=== PATIENT | male | born 1945 | race Asian ===

== ENCOUNTER 2023-07-18 22:52 | Inpatient (IN) | payer OTHER, MEDICAID ==
[~2023-07-18] VITALS: Ht 160 cm; Wt 70.0 kg
[2023-07-19] VITALS (25 sets, daily range): BP systolic 91–144; BP diastolic 38–99; PULSE 80–121; RESP 11–22; TEMP 98–99.7; O2SAT 97–100
[2023-07-19 00:24] LABS: Hemoglobin 7.1 g/dL (13.5-17.5)
[2023-07-19 00:25] LABS: Hematocrit 23.7 % (41.0-53.0); Mean Corpuscular Hemoglobin 19.2 pg (28.0-32.0); Mean Corpuscular Hgb Conc. 29.8 g/dL (32.0-36.0); Mean Corpuscular Volume 64.4 fL (80.0-100.0); Red Blood Cells 3.68 10^6/uL (4.5-5.90); White Blood Cell 17.8 10^3/uL (4.4-10.8)
[2023-07-19 00:31] LABS: Basophils % (manual) 0 (0.0-2.0); Blast Cells 0; Metamyelocytes % 0; Myelocytes % 0; Promyelocytes % 0
[2023-07-19] MEDS: SODIUM CHLORIDE 0.9% 500 ML IV ONE ×2 (00:33→13:15)
[2023-07-19 00:39] LABS: INR 1.28 (0.9-1.15); Partial Thromboplastin Time 37.2 SEC (24.5-34.5); Prothrombin Time 13.2 sec (9.3-11.8)
[2023-07-19 00:42] LABS: Alanine Aminotransferase 27 U/L (7-40); Albumin 3.4 g/dL (3.2-4.8); Alkaline Phosphatase 110 U/L (46-116); Anion Gap 3 (5-15); Aspartate Aminotransferase 15 U/L (13-40); Blood Urea Nitrogen 44 mg/dL (9-23); Calcium 8.7 mg/dL (8.7-10.4); Carbon Dioxide 27 mmol/L (20-30); Chloride 100 mmol/L (98-107); Glucose 131 mg/dL (74-106); Potassium 4.5 mmol/L (3.5-5.1); Sodium 130 mmol/L (136-145); Total Protein 6.1 g/dL (5.7-8.2)
[2023-07-19 00:50] LABS: Band Neutrophils % (manual) 3; Eosinophils % (manual) 1 (0-7); Large Platelets FEW; Lymphocytes % (manual) 8 (10.0-50.0); Monocytes % (manual) 29 (0-12); Platelet Estimate Decreased; Reactive Lymphocytes 1
[2023-07-19 00:51] LABS: Anisocytosis Moderate; Hypochromia Marked; Ovalocytes FEW; Target Cell MODERATE
[2023-07-19] MEDS ORDERED: DEXTROSE (50%) 50ML SYRG IV PRN (02:45)
[2023-07-19] MEDS ORDERED: MORPHINE SULFATE INJ 2 MG/ml SYRG IV PRN (02:45)
[2023-07-19] MEDS ORDERED: NITROGLYCERIN 0.4 MG SL TAB SL PRN (02:45)
[2023-07-19] MEDS ORDERED: ONDANSETRON HCL 4 MG/2 ML VIAL IV PRN (02:45)
[2023-07-19] MEDS: ERYTHROMY OPTH OINT 5mg/gm 1gm or 3.5gm tube ONE (02:59)
[2023-07-19] MEDS ORDERED: ERYTHROMY OPTH OINT 5mg/gm 1gm or 3.5gm tube OP ONE (03:00)
[2023-07-19] MEDS: PANTOPRAZOLE 40mg/50ML NS AE 50 ML IV SCH (04:13)
[2023-07-19] MEDS: InsuLIN REG 1unit/0.01ml Soln (100units/ml) SC SCH (06:00)
[2023-07-19] MEDS: ACCU-CHEK COMFORT CURVE STRIP VI SCH (06:25)
[2023-07-19] MEDS: cefTRIAXone 1GM/50ML D5W 50 ML IV SCH (09:15)
[2023-07-19] MEDS: NOREPINEPHRINE 8 MG/250ML KIT 250 ML IV ONE (09:29)
[2023-07-19] MEDS: NOREPINEPHRINE 8 MG/250ML KIT 250 ML IV SCH (09:30)
[2023-07-19 10:40] LABS: Urine Bacteria None Seen /hpf (None Seen)
[2023-07-19 11:03] LABS: Urine Blood Negative /uL (Negative); Urine Clarity Clear (Clear); Urine Color Light-Yellow (Yellow); Urine Protein, UAD Negative (Negative); Urine Specific Gravity 1.014 (1.001-1.035); Urine Urobilinogen Normal (Negative); Urine WBC <1 /hpf (0 - 3); Urine pH 5.5 (5.0-9.0)
[2023-07-19] MEDS: SODIUM CHLORIDE 0.9% 1,000 ML IV SCH (13:15)
[2023-07-19] MEDS: PIPERACILLIN-TAZOB 3.375GM 100 ML IV ONE (13:15)
[2023-07-19 13:31] LABS: Base Excess -4.5 mmol/L (-2.0-2.0)
[2023-07-19 13:55] LABS: Mean Corpuscular Hemoglobin 20.6 pg (28.0-32.0)
[2023-07-19 13:57] LABS: Hematocrit 9.9 % (41.0-53.0); Mean Corpuscular Volume 70.9 fL (80.0-100.0); Red Blood Cells 1.39 10^6/uL (4.5-5.90); White Blood Cell 19.9 10^3/uL (4.4-10.8)
[2023-07-19 14:03] LABS: Potassium 4.1 mmol/L (3.5-5.1); Sodium 138 mmol/L (136-145)
[2023-07-19 14:04] LABS: Anion Gap 6 (5-15)
[2023-07-19 14:09] LABS: Glucose 195 mg/dL (74-106)
[2023-07-19 14:10] LABS: BUN/Creatinine Ratio 53.6 (10.0-20.0); Blood Urea Nitrogen 52 mg/dL (9-23)
[2023-07-19 14:12] LABS: Red Cell Distribution Width 26.8 % (11.8-14.3)
[2023-07-19 14:13] LABS: Hemoglobin 2.9 g/dL (13.5-17.5)
[2023-07-19 14:14] LABS: Basophils % (manual) 0 (0.0-2.0); Promyelocytes % 0; Reactive Lymphocytes 0
[2023-07-19] MEDS: PIPERACILLIN-TAZOB 3.375GM 100 ML IV SCH (14:17)
[2023-07-19] MEDS: LIDOCAINE 1% (LOCAL ANESTH.) PF 5ml SDV ID ONE (14:20)
[2023-07-19 14:46] LABS: Band Neutrophils % (manual) 6; Blast Cells 4; Eosinophils % (manual) 2 (0-7); Lymphocytes % (manual) 5 (10.0-50.0); Metamyelocytes % 6; Monocytes % (manual) 15 (0-12); Myelocytes % 2; Smudge Cells 1 /100 WBC
[2023-07-19 14:47] LABS: Platelet Estimate Decreased
[2023-07-19 14:48] LABS: Anisocytosis Moderate; Hypochromia Marked; Ovalocytes MODERATE
[2023-07-19 14:51] LABS: Carbon Dioxide 16 mmol/L (20-30); Chloride 116 mmol/L (98-107)
[2023-07-19 14:52] LABS: Calcium 5.3 mg/dL (8.7-10.4)
[2023-07-19] MEDS: LACTATED RINGER'S 1,000 ML IV SCH (15:45)
[2023-07-19] MEDS: CALCIUM GLUC 1,000mg/50ml-NS 50 ML IV ONE (15:45)
[2023-07-19 20:35] LABS: White Blood Cell 26.8 10^3/uL (4.4-10.8)
[2023-07-19 20:37] LABS: Hematocrit 19.8 % (41.0-53.0); Mean Corpuscular Hgb Conc. 30.8 g/dL (32.0-36.0); Mean Corpuscular Volume 71.5 fL (80.0-100.0); Red Blood Cells 2.77 10^6/uL (4.5-5.90)
[2023-07-19 20:38] LABS: Red Cell Distribution Width 28.7 % (11.8-14.3)
[2023-07-19 20:41] LABS: Hemoglobin 6.1 g/dL (13.5-17.5)
[2023-07-19 20:43] LABS: Basophils % (manual) 0 (0.0-2.0); Blast Cells 0; Myelocytes % 0; Promyelocytes % 0; Reactive Lymphocytes 0
[2023-07-19] MEDS: SODIUM CHLOR 0.9% PF (SALINE LOCK) 10ML VIAL/SYR IV SCH (22:22)
[2023-07-19 22:30] LABS: Band Neutrophils % (manual) 8; Eosinophils % (manual) 2 (0-7); Lymphocytes % (manual) 5 (10.0-50.0); Monocytes % (manual) 23 (0-12)
[2023-07-19 22:31] LABS: Anisocytosis Moderate; Metamyelocytes % 2; Target Cell FEW; Tear Drop Cells FEW
[2023-07-19 22:34] LABS: Hypochromia Marked
[2023-07-19 22:49] LABS: Platelet Estimate Decreased
[2023-07-20] VITALS (27 sets, daily range): BP systolic 92–137; BP diastolic 33–67; PULSE 83–94; RESP 13–26; TEMP 97.3–98.7; O2SAT 88–100
[2023-07-20] MEDS: LORazepam 2MG/ML-1ML VIAL IV ONE (01:20)
[2023-07-20 01:33] LABS: Hematocrit 23.4 % (41.0-53.0); Hemoglobin 7.3 g/dL (13.5-17.5)
[2023-07-20 06:24] LABS: Hematocrit 22.5 % (41.0-53.0)
[2023-07-20 06:27] LABS: Mean Corpuscular Hemoglobin 23.5 pg (28.0-32.0); Mean Corpuscular Volume 75.8 fL (80.0-100.0); Red Blood Cells 2.96 10^6/uL (4.5-5.90); White Blood Cell 20.4 10^3/uL (4.4-10.8)
[2023-07-20 06:34] LABS: Red Cell Distribution Width 28.1 % (11.8-14.3)
[2023-07-20 06:36] LABS: Basophils % (manual) 0 (0.0-2.0); Blast Cells 0; Eosinophils % (manual) 0 (0-7); Promyelocytes % 0; Reactive Lymphocytes 0
[2023-07-20 06:39] LABS: Alanine Aminotransferase 15 U/L (7-40); Alkaline Phosphatase 73 U/L (46-116); Anion Gap 7 (5-15); BUN/Creatinine Ratio 37.2 (10.0-20.0); Blood Urea Nitrogen 58 mg/dL (9-23); Calcium 8.2 mg/dL (8.5-10.1); Carbon Dioxide 24 mmol/L (20-30); Chloride 106 mmol/L (98-107); Glucose 135 mg/dL (74-106); Potassium 4.4 mmol/L (3.5-5.1); Sodium 137 mmol/L (136-145)
[2023-07-20 06:40] LABS: Aspartate Aminotransferase 17 U/L (13-40); Bilirubin, Total 0.6 mg/dL (0.2-1.0); Total Protein 5.3 g/dL (5.7-8.2)
[2023-07-20 08:30] LABS: Band Neutrophils % (manual) 6; Lymphocytes % (manual) 25 (10.0-50.0); Metamyelocytes % 1; Monocytes % (manual) 14 (0-12); Myelocytes % 1; Platelet Estimate Decreased; Target Cell FEW
[2023-07-20 08:31] LABS: Anisocytosis Moderate; Hypochromia Moderate; Ovalocytes FEW
[2023-07-20 11:11] LABS: Red Blood Cells 2.93 10^6/uL (4.5-5.90)
[2023-07-20 11:13] LABS: Hematocrit 21.5 % (41.0-53.0); Mean Corpuscular Hgb Conc. 31.3 g/dL (32.0-36.0); Mean Corpuscular Volume 73.7 fL (80.0-100.0); White Blood Cell 19.3 10^3/uL (4.4-10.8)
[2023-07-20 11:31] LABS: Red Cell Distribution Width 28.5 % (11.8-14.3)
[2023-07-20 11:42] LABS: Hemoglobin 6.7 g/dL (13.5-17.5)
[2023-07-20 11:43] LABS: Basophils % (manual) 0 (0.0-2.0); Blast Cells 0; Metamyelocytes % 0; Myelocytes % 0; Promyelocytes % 0; Reactive Lymphocytes 0
[2023-07-20 11:56] LABS: Anisocytosis Moderate; Band Neutrophils % (manual) 10; Eosinophils % (manual) 4 (0-7); Hypochromia Moderate; Lymphocytes % (manual) 13 (10.0-50.0); Monocytes % (manual) 6 (0-12)
[2023-07-20 11:57] LABS: Ovalocytes FEW; Platelet Estimate Decreased; Target Cell FEW; Tear Drop Cells FEW
[2023-07-20] MEDS: IRON SUCROSE COMPLEX 100 ML IV SCH (12:00)
[2023-07-20] MEDS ORDERED: EPINEPHrine HCL 1 MG/10 ML SYRG ONE (13:09)
[2023-07-20] MEDS ORDERED: LIDOCAINE 2% (LOCAL ANESTH.) PF 5ml SDV ONE (13:56)
[2023-07-20] MEDS ORDERED: PROPOFOL 10 MG/ML 20 ML IV ONE (13:56)
[2023-07-20] MEDS ORDERED: ONDANSETRON HCL 4 MG/2 ML VIAL ONE (14:17)
[2023-07-20] MEDS ORDERED: KETAMINE 50mg/ML 1ml syringe ONE (14:17)
[2023-07-20] MEDS: ONDANSETRON HCL 4 MG/2 ML VIAL IV ONE (14:30)
[2023-07-20] MEDS: SUCRALFATE 1 GM/10 ML ORAL SUSP PO SCH (18:10)
[2023-07-20 19:40] LABS: Hematocrit 20.2 % (41.0-53.0)
[2023-07-20 19:49] LABS: Hemoglobin 6.3 g/dL (13.5-17.5)
[2023-07-20] MEDS: PANTOPRAZOLE 40 MG/10 ML VIAL INJ IV SCH (21:57)
[2023-07-21] VITALS (28 sets, daily range): BP systolic 101–135; BP diastolic 31–63; PULSE 69–99; RESP 15–23; TEMP 97.5–98.4; O2SAT 80–100
[2023-07-21 09:56] LABS: Hematocrit 28.2 % (41.0-53.0); Red Blood Cells 3.63 10^6/uL (4.5-5.90); White Blood Cell 16.4 10^3/uL (4.4-10.8)
[2023-07-21 09:57] LABS: Hemoglobin 9.2 g/dL (13.5-17.5); Mean Corpuscular Hemoglobin 25.2 pg (28.0-32.0); Mean Corpuscular Hgb Conc. 32.5 g/dL (32.0-36.0); Mean Corpuscular Volume 77.7 fL (80.0-100.0)
[2023-07-21 10:04] LABS: Red Cell Distribution Width 24.6 % (11.8-14.3)
[2023-07-21 10:05] LABS: Band Neutrophils % (manual) 0; Basophils % (manual) 0 (0.0-2.0); Blast Cells 0; Myelocytes % 0; Promyelocytes % 0; Reactive Lymphocytes 0
[2023-07-21 10:20] LABS: Calcium 8.1 mg/dL (8.5-10.1); Chloride 106 mmol/L (98-107); Potassium 4.4 mmol/L (3.5-5.1); Sodium 137 mmol/L (136-145)
[2023-07-21 10:21] LABS: Anion Gap 6 (5-15); Carbon Dioxide 25 mmol/L (20-30)
[2023-07-21 10:26] LABS: Glucose 138 mg/dL (74-106)
[2023-07-21 10:49] LABS: Blood Urea Nitrogen 33 mg/dL (9-23)
[2023-07-21] MEDS: LACTATED RINGER'S 1,000 ML IV SCH (11:20)
[2023-07-21 12:45] LABS: Anisocytosis Moderate; Eosinophils % (manual) 3 (0-7); Lymphocytes % (manual) 10 (10.0-50.0); Metamyelocytes % 3; Monocytes % (manual) 16 (0-12); Ovalocytes MODERATE; Platelet Estimate Decreased
[2023-07-22] VITALS (29 sets, daily range): BP systolic 52–133; BP diastolic 0–74; PULSE 63–90; RESP 12–22; TEMP 97.3–98.9; O2SAT 93–100
[2023-07-22] MEDS: ALBUMIN 25% 100 ML IV ONE (01:33)
[2023-07-22] MEDS: OCTREOTIDE ACETATE 500 MCG/ML VL ONE (01:45)
[2023-07-22] MEDS: OCTREOTIDE ACETATE 500 MCG in SODIUM CHL 0.9% 99 ML IV SCH (01:45)
[2023-07-22] MEDS: ALBUMIN 25% 100 ML IV SCH (02:00)
[2023-07-22 02:05] LABS: Hematocrit 16.5 % (41.0-53.0)
[2023-07-22 02:46] LABS: Hemoglobin 5.1 g/dL (13.5-17.5)
[2023-07-22 13:29] LABS: Mean Corpuscular Hemoglobin 24.3 pg (28.0-32.0); Mean Corpuscular Hgb Conc. 31.6 g/dL (32.0-36.0); Mean Corpuscular Volume 76.9 fL (80.0-100.0); Red Blood Cells 2.59 10^6/uL (4.5-5.90); White Blood Cell 13.5 10^3/uL (4.4-10.8)
[2023-07-22 13:32] LABS: Red Cell Distribution Width 22.3 % (11.8-14.3)
[2023-07-22 13:35] LABS: Hemoglobin 6.3 g/dL (13.5-17.5)
[2023-07-22 13:36] LABS: Basophils % (manual) 0 (0.0-2.0); Blast Cells 0; Chloride 110 mmol/L (98-107); Myelocytes % 0; Potassium 4.7 mmol/L (3.5-5.1); Promyelocytes % 0; Reactive Lymphocytes 0; Sodium 140 mmol/L (136-145)
[2023-07-22 13:37] LABS: Anion Gap 5 (5-15); Calcium 7.5 mg/dL (8.5-10.1); Carbon Dioxide 25 mmol/L (20-30)
[2023-07-22 13:42] LABS: BUN/Creatinine Ratio 13.5 (10.0-20.0); Blood Urea Nitrogen 19 mg/dL (9-23); Glucose 120 mg/dL (74-106)
[2023-07-22 13:43] LABS: % Iron Saturation 122.2 % (20-55)
[2023-07-22 14:33] LABS: Band Neutrophils % (manual) 2; Eosinophils % (manual) 4 (0-7); Lymphocytes % (manual) 6 (10.0-50.0); Metamyelocytes % 1; Monocytes % (manual) 19 (0-12)
[2023-07-22 14:34] LABS: Anisocytosis Slight; Hypochromia Moderate; Target Cell FEW
[2023-07-22 14:36] LABS: Platelet Estimate Decreased; Tear Drop Cells FEW
[2023-07-22 21:29] LABS: Hematocrit 26.4 % (41.0-53.0); Hemoglobin 8.4 g/dL (13.5-17.5)
[2023-07-23] VITALS (30 sets, daily range): BP systolic 87–128; BP diastolic 32–55; PULSE 70–92; RESP 12–25; TEMP 97.9–98.9; O2SAT 91–97
[2023-07-23 05:50] LABS: Chloride 109 mmol/L (98-107); Potassium 4.4 mmol/L (3.5-5.1); Sodium 141 mmol/L (136-145)
[2023-07-23 05:51] LABS: Anion Gap 9 (5-15); Calcium 8.1 mg/dL (8.7-10.4); Carbon Dioxide 23 mmol/L (20-30)
[2023-07-23 05:56] LABS: BUN/Creatinine Ratio 8.6 (10.0-20.0); Blood Urea Nitrogen 13 mg/dL (9-23); Glucose 117 mg/dL (74-106)
[2023-07-23 06:01] LABS: White Blood Cell 24.9 10^3/uL (4.4-10.8)
[2023-07-23 06:03] LABS: Basophils # (auto) 0.1 10 ^3/uL (0-0.2); Basophils % (auto) 0.4 % (0.0-2.0); Eosinophils # (auto) 1.2 10 ^3/uL (0-0.8); Eosinophils % (auto) 4.7 % (0.0-7.0); Hematocrit 28.8 % (41.0-53.0); Lymphocytes % (auto) 4.1 % (10.0-50.0); Mean Corpuscular Hemoglobin 25.2 pg (28.0-32.0); Mean Corpuscular Hgb Conc. 31.3 g/dL (32.0-36.0); Mean Corpuscular Volume 80.5 fL (80.0-100.0); Monocytes # (auto) 3.9 10 ^3/uL (0-1.3); Monocytes % (auto) 15.7 % (0.0-12.0); Neutrophils # (auto) 18.7 10 ^3/uL (1.6-8.6); Neutrophils % (auto) 75.1 % (37.0-80.0); Nucleated Red Blood Cells % 0.1 %; Red Blood Cells 3.58 10^6/uL (4.5-5.90)
[2023-07-23 06:14] LABS: Red Cell Distribution Width 22.7 % (11.8-14.3)
[2023-07-23 22:33] LABS: Hemoglobin 7.7 g/dL (13.5-17.5)
[2023-07-23 22:35] LABS: Hematocrit 24.8 % (41.0-53.0)
[2023-07-24] VITALS (101 sets, daily range): BP systolic 72–138; BP diastolic 35–67; PULSE 64–111; RESP 10–27; TEMP 96.7–98.2; O2SAT 91–100
[2023-07-24] MEDS: NOREPINEPHRINE 8 MG/250ML KIT 250 ML IV SCH (02:18)
[2023-07-24 04:04] LABS: Anion Gap 4 (5-15); Carbon Dioxide 25 mmol/L (20-30); Chloride 109 mmol/L (98-107); Sodium 138 mmol/L (136-145)
[2023-07-24 04:05] LABS: Calcium 7.7 mg/dL (8.7-10.4)
[2023-07-24 04:10] LABS: BUN/Creatinine Ratio 7.5 (10.0-20.0); Blood Urea Nitrogen 14 mg/dL (9-23); Glucose 165 mg/dL (74-106)
[2023-07-24 04:54] LABS: Potassium 5.7 mmol/L (3.5-5.1)
[2023-07-24 05:03] LABS: Hematocrit 26.3 % (41.0-53.0); Hemoglobin 7.8 g/dL (13.5-17.5); Mean Corpuscular Hemoglobin 24.7 pg (28.0-32.0); Mean Corpuscular Hgb Conc. 29.8 g/dL (32.0-36.0); Mean Corpuscular Volume 82.8 fL (80.0-100.0); Red Blood Cells 3.17 10^6/uL (4.5-5.90)
[2023-07-24 05:18] LABS: Red Cell Distribution Width 22.2 % (11.8-14.3)
[2023-07-24 05:20] LABS: White Blood Cell 82.1 10^3/uL (4.4-10.8)
[2023-07-24 05:21] LABS: Basophils % (manual) 0 (0.0-2.0); Blast Cells 0; Metamyelocytes % 0; Promyelocytes % 0; Reactive Lymphocytes 0
[2023-07-24 08:16] LABS: Band Neutrophils % (manual) 6; Eosinophils % (manual) 14 (0-7); Lymphocytes % (manual) 11 (10.0-50.0); Monocytes % (manual) 20 (0-12); Myelocytes % 1
[2023-07-24 08:17] LABS: Large Platelets FEW
[2023-07-24 08:18] LABS: Platelet Estimate Adequa
[2023-07-24] MEDS: OCTREOTIDE ACETATE 500 MCG in SODIUM CHL 0.9% 99 ML IV SCH (08:30)
[2023-07-24] MEDS: PANTOPRAZOLE 40mg/50ML NS AE 50 ML IV SCH (08:30)
[2023-07-24] MEDS: GOLYTELY 4L KIT PO ONE (08:30)
[2023-07-24 11:03] LABS: Hematocrit 23.4 % (41.0-53.0); Hemoglobin 7.2 g/dL (13.5-17.5); Mean Corpuscular Hemoglobin 25.7 pg (28.0-32.0); Mean Corpuscular Hgb Conc. 30.8 g/dL (32.0-36.0); Mean Corpuscular Volume 83.5 fL (80.0-100.0); Red Cell Distribution Width 19.7 % (11.8-14.3)
[2023-07-24 11:05] LABS: White Blood Cell 77.2 10^3/uL (4.4-10.8)
[2023-07-24 11:06] LABS: Basophils % (manual) 0 (0.0-2.0); Blast Cells 0; Chloride 110 mmol/L (98-107); Metamyelocytes % 0; Promyelocytes % 0; Reactive Lymphocytes 0; Sodium 140 mmol/L (136-145)
[2023-07-24 11:07] LABS: Anion Gap 5 (5-15); Calcium 7.3 mg/dL (8.5-10.1); Carbon Dioxide 25 mmol/L (20-30)
[2023-07-24 11:12] LABS: BUN/Creatinine Ratio 10.8 (10.0-20.0); Blood Urea Nitrogen 21 mg/dL (9-23); Glucose 149 mg/dL (74-106)
[2023-07-24 11:15] LABS: Potassium 5.6 mmol/L (3.5-5.1)
[2023-07-24 11:18] LABS: INR 1.76 (0.9-1.15); Partial Thromboplastin Time 38.7 SEC (24.5-34.5); Prothrombin Time 17.9 sec (9.3-11.8)
[2023-07-24] MEDS: NOREPINEPHRINE 8 MG/250ML KIT 250 ML IV ONE (11:25)
[2023-07-24 11:39] LABS: Band Neutrophils % (manual) 8; Eosinophils % (manual) 6 (0-7); Lymphocytes % (manual) 13 (10.0-50.0); Monocytes % (manual) 14 (0-12); Myelocytes % 1
[2023-07-24 11:40] LABS: Platelet Estimate Adequate
[2023-07-24] MEDS ORDERED: KETAMINE 50mg/ML 1ml syringe ONE ×2 (11:55→12:00)
[2023-07-24] MEDS ORDERED: MIDAZOLAM HCL 2MG/2ML 2ml VIAL (1mg/ml) ONE (11:55)
[2023-07-24] MEDS ORDERED: fentaNYL CITRATE 100 MCG/2 ML VL ONE (11:55)
[2023-07-24] MEDS: ONDANSETRON HCL 4 MG/2 ML VIAL IV ONE (12:00)
[2023-07-24] MEDS ORDERED: EPINEPHrine HCL 1 MG/10 ML SYRG ONE (12:57)
[2023-07-24] MEDS: EPINEPHrine HCL 1 MG/10 ML SYRG ONE ×2 (13:43)
[2023-07-24] MEDS ORDERED: ONDANSETRON HCL 4 MG/2 ML VIAL ONE (13:49)
[2023-07-24 16:54] LABS: Urine Amorphous Crystal FEW /hpf (None Seen); Urine Bacteria FEW /hpf (None Seen); Urine Blood 1+ /uL (Negative); Urine Clarity Ex.Turbid (Clear); Urine Color Yellow (Yellow); Urine Protein, UAD 1+ (Negative); Urine Specific Gravity 1.027 (1.001-1.035); Urine Urobilinogen Normal (Negative); Urine WBC 9 /hpf (0 - 3); Urine pH 5.5 (5.0-9.0)
[2023-07-24 17:00] LABS: Creatinine, Urine 130.44 mg/dL (30.0-125.0)
[2023-07-24] MEDS: SODIUM CHLORIDE 0.9% 1,000 ML IV SCH (17:13)
[2023-07-24] MEDS: CEFEPIME 1GM/ 50ML 50 ML IV SCH (21:45)
[2023-07-24 22:15] LABS: Hematocrit 20.2 % (41.0-53.0); Mean Corpuscular Hemoglobin 25.7 pg (28.0-32.0); Mean Corpuscular Hgb Conc. 29.9 g/dL (32.0-36.0); Mean Corpuscular Volume 85.9 fL (80.0-100.0); Red Blood Cells 2.35 10^6/uL (4.5-5.90); Red Cell Distribution Width 17.6 % (11.8-14.3)
[2023-07-24 22:24] LABS: Basophils % (manual) 0 (0.0-2.0); Blast Cells 0; Promyelocytes % 0; Reactive Lymphocytes 0; White Blood Cell 58.1 10^3/uL (4.4-10.8)
[2023-07-24 23:29] LABS: Band Neutrophils % (manual) 17; Eosinophils % (manual) 2 (0-7); Lymphocytes % (manual) 4 (10.0-50.0); Metamyelocytes % 3; Monocytes % (manual) 14 (0-12)
[2023-07-24 23:30] LABS: Myelocytes % 2
[2023-07-24 23:31] LABS: Anisocytosis Slight; Large Platelets FEW; Platelet Estimate Adequate
[2023-07-25] VITALS (110 sets, daily range): BP systolic 65–157; BP diastolic 16–118; PULSE 81–134; RESP 10–33; TEMP 96.1–98.6; O2SAT 91–100
[2023-07-25] MEDS: VASOPRESSIN 20 UNIT/ML ONE (02:24)
[2023-07-25 03:49] LABS: Albumin 1.9 g/dL (3.2-4.8); Alkaline Phosphatase 48 U/L (46-116); Anion Gap 4 (5-15); Aspartate Aminotransferase 12 U/L (13-40); BUN/Creatinine Ratio 8.3 (10.0-20.0); Bilirubin, Total 0.5 mg/dL (0.2-1.0); Blood Urea Nitrogen 17 mg/dL (9-23); Calcium 6.7 mg/dL (8.7-10.4); Carbon Dioxide 22 mmol/L (20-30); Chloride 114 mmol/L (98-107); Glucose 175 mg/dL (74-106); Potassium 5.1 mmol/L (3.5-5.1); Sodium 140 mmol/L (136-145); Total Protein 3.1 g/dL (5.7-8.2); Uric Acid 7.2 mg/dL (3.7-9.2)
[2023-07-25 03:51] LABS: Hematocrit 19.5 % (41.0-53.0); Mean Corpuscular Hemoglobin 26.1 pg (28.0-32.0); Mean Corpuscular Volume 84.1 fL (80.0-100.0); Red Blood Cells 2.32 10^6/uL (4.5-5.90); Red Cell Distribution Width 15.9 % (11.8-14.3)
[2023-07-25 03:53] LABS: Hemoglobin 6.1 g/dL (13.5-17.5); White Blood Cell 69.9 10^3/uL (4.4-10.8)
[2023-07-25 03:54] LABS: Basophils % (manual) 0 (0.0-2.0); Promyelocytes % 0; Reactive Lymphocytes 0
[2023-07-25 04:05] LABS: Alanine Aminotransferase < 9 U/L (7-40)
[2023-07-25 04:27] LABS: Bilirubin, Direct 0.3 mg/dL (<0.3)
[2023-07-25] MEDS: PHENYLEPHRINE IV 250 ML IV SCH (05:00)
[2023-07-25 05:17] LABS: Band Neutrophils % (manual) 30; Blast Cells 6; Eosinophils % (manual) 7 (0-7); Lymphocytes % (manual) 2 (10.0-50.0); Metamyelocytes % 8; Monocytes % (manual) 10 (0-12); Myelocytes % 6; Platelet Estimate Adequate; Smudge Cells 3 /100 WBC
[2023-07-25 14:34] LABS: Basophils # (auto) 0.8 10 ^3/uL (0-0.2); Eosinophils # (auto) 1.5 10 ^3/uL (0-0.8); Eosinophils % (auto) 1.8 % (0.0-7.0); Hematocrit 19.7 % (41.0-53.0); Lymphocytes # (auto) 3.5 10 ^3/uL (0.4-5.4); Lymphocytes % (auto) 4.2 % (10.0-50.0); Mean Corpuscular Hemoglobin 26.7 pg (28.0-32.0); Mean Corpuscular Hgb Conc. 30.4 g/dL (32.0-36.0); Mean Corpuscular Volume 87.8 fL (80.0-100.0); Monocytes # (auto) 17.2 10 ^3/uL (0-1.3); Neutrophils # (auto) 60.3 10 ^3/uL (1.6-8.6); Neutrophils % (auto) 72.3 % (37.0-80.0); Nucleated Red Blood Cells % 0.4 %; Red Blood Cells 2.25 10^6/uL (4.5-5.90); Red Cell Distribution Width 17.4 % (11.8-14.3)
[2023-07-25 14:49] LABS: Albumin 1.8 g/dL (3.2-4.8); Alkaline Phosphatase 52 U/L (46-116); Anion Gap 8 (5-15); Aspartate Aminotransferase 33 U/L (13-40); BUN/Creatinine Ratio 9.1 (10.0-20.0); Bilirubin, Total 0.5 mg/dL (0.2-1.0); Blood Urea Nitrogen 21 mg/dL (9-23); Calcium 6.6 mg/dL (8.5-10.1); Carbon Dioxide 19 mmol/L (20-30); Chloride 115 mmol/L (98-107); Glucose 167 mg/dL (74-106); Potassium 5.5 mmol/L (3.5-5.1); Sodium 142 mmol/L (136-145)
[2023-07-25 15:01] LABS: Alanine Aminotransferase 9 U/L (7-40)
[2023-07-25 15:08] LABS: INR 2.12 (0.9-1.15); Partial Thromboplastin Time 44.5 SEC (24.5-34.5); Prothrombin Time 21.3 sec (9.3-11.8)
[2023-07-25 15:33] LABS: Monocytes % (auto) 20.7 % (0.0-12.0)
[2023-07-25 15:35] LABS: White Blood Cell 83.3 10^3/uL (4.4-10.8)
[2023-07-25] MEDS: FUROSEMIDE 40 MG/4 ML VIAL IV ONE (15:48)
[2023-07-25] MEDS: SODIUM BICARB 8.4% 50Meq/50ml SYR Vial IV ONE ×2 (16:29→23:10)
[2023-07-25] MEDS: DEXTROSE (50%) 50ML SYRG IV ONE (16:30)
[2023-07-25] MEDS: InsuLIN REG 1unit/0.01ml Soln (100units/ml) IV ONE ×2 (16:39→17:02)
[2023-07-25] MEDS ORDERED: fentaNYL CITRATE 100 MCG/2 ML VL ONE (18:05)
[2023-07-25] MEDS ORDERED: MIDAZOLAM HCL 2MG/2ML 2ml VIAL (1mg/ml) ONE (18:06)
[2023-07-25] MEDS: HYDROmorphone HCL 2 MG/ML VL/or syr IV PRN (20:18)
[2023-07-25 20:22] LABS: Hematocrit 18.6 % (41.0-53.0); Mean Corpuscular Hemoglobin 26.4 pg (28.0-32.0); Mean Corpuscular Hgb Conc. 28.9 g/dL (32.0-36.0); Mean Corpuscular Volume 91.1 fL (80.0-100.0); Red Blood Cells 2.04 10^6/uL (4.5-5.90); Red Cell Distribution Width 17.9 % (11.8-14.3)
[2023-07-25 20:25] LABS: White Blood Cell 65.1 10^3/uL (4.4-10.8)
[2023-07-25 20:27] LABS: Basophils % (manual) 0 (0.0-2.0); Reactive Lymphocytes 0
[2023-07-25] MEDS: fentaNYL Drip 2500mCg/250mlNS 250 ML IV SCH (20:30)
[2023-07-25 20:40] LABS: Alanine Aminotransferase 12 U/L (7-40); Albumin 1.1 g/dL (3.2-4.8); Alkaline Phosphatase 36 U/L (46-116); Anion Gap 8 (5-15); Aspartate Aminotransferase 30 U/L (13-40); BUN/Creatinine Ratio 8.3 (10.0-20.0); Bilirubin, Total 0.2 mg/dL (0.2-1.0); Blood Urea Nitrogen 14 mg/dL (9-23); Carbon Dioxide 14 mmol/L (20-30); Chloride 117 mmol/L (98-107); INR 2.4 (0.9-1.15); Partial Thromboplastin Time 69.8 SEC (24.5-34.5); Potassium 3.9 mmol/L (3.5-5.1); Prothrombin Time 23.8 sec (9.3-11.8); Sodium 139 mmol/L (136-145)
[2023-07-25 20:42] LABS: Glucose 377 mg/dL (74-106)
[2023-07-25 20:44] LABS: Base Excess -10.7 mmol/L (-2.0-2.0)
[2023-07-25 20:45] LABS: Calcium 4.5 mg/dL (8.5-10.1)
[2023-07-25 22:06] LABS: Band Neutrophils % (manual) 20; Lymphocytes % (manual) 6 (10.0-50.0); Metamyelocytes % 8; Monocytes % (manual) 16 (0-12); Myelocytes % 2; Promyelocytes % 1
[2023-07-25 22:07] LABS: Eosinophils % (manual) 3 (0-7); Platelet Estimate Adequate
[2023-07-25 22:08] LABS: Anisocytosis Slight; Large Platelets FEW
[2023-07-25 22:09] LABS: Polychromasia Slight
[2023-07-25] MEDS: LIDOCAINE 2%HCL (LOCAL ANESTH.) INJ 10ml MDV ONE (22:20)
[2023-07-25] MEDS: LIDOCAINE 2%HCL (LOCAL ANESTH.) INJ 20ML MDV ONE (22:20)
[2023-07-25] MEDS: ceFAZolin 2 GM/D5W50ml 50 ML IV ONE (22:21)
[2023-07-25] MEDS: MIDAZOLAM HCL 2MG/2ML 2ml VIAL (1mg/ml) ONE (22:21)
[2023-07-25] MEDS: IODIXANOL 320MG/ML 100ML BTL IV ONE (22:21)
[2023-07-25] MEDS: fentaNYL CITRATE 100 MCG/2 ML VL ONE (22:21)
[2023-07-25] MEDS: ALBUMIN 25% 0 ML IV ONE (22:22)
[2023-07-25] MEDS: MIDAZOLAM DRIP 50 mg/50mL 50 ML IV SCH (22:23)
[2023-07-25] MEDS: HYDROmorphone HCL 2 MG/ML VL/or syr ONE (22:23)
[2023-07-25] MEDS: MIDAZOLAM DRIP 50 mg/50mL 50 ML IV ONE (22:23)
[2023-07-25] MEDS: FUROSEMIDE 40 MG/4 ML VIAL IV SCH (22:24)
[2023-07-25 22:25] LABS: Blast Cells 4
[2023-07-25] MEDS ORDERED: HYDROmorphone HCL 2 MG/ML VL/or syr IV PRN (22:45)
[2023-07-25] MEDS: SODIUM BICARB 8.4% 50Meq/50ml SYR INJ ONE (23:10)
[2023-07-25] MEDS: CALCIUM GLUC 1,000mg/50ml-NS 50 ML IV SCH (23:25)
[2023-07-25] MEDS: CALCIUM GLUC 1,000mg/50ml-NS 100 ML IV ONE (23:29)
[2023-07-25] MEDS: PHYTONADIONE (VIT K)10 MG/ML 1ML VIAL SUBCUT ONE (23:31)
[2023-07-26] VITALS (121 sets, daily range): BP systolic 91–126; BP diastolic 22–90; PULSE 94–127; RESP 12–29; TEMP 97–100.5; O2SAT 81–100
[2023-07-26] MEDS: SODIUM BICARB 8.4% 50Meq/50ml SYR Vial IV ONE ×2 (00:30→05:33)
[2023-07-26 06:23] LABS: Hematocrit 25.9 % (41.0-53.0); Hemoglobin 7.9 g/dL (13.5-17.5); Mean Corpuscular Hgb Conc. 30.5 g/dL (32.0-36.0)
[2023-07-26 06:28] LABS: Mean Corpuscular Hemoglobin 26.7 pg (28.0-32.0); Mean Corpuscular Volume 87.6 fL (80.0-100.0); Red Blood Cells 2.95 10^6/uL (4.5-5.90); Red Cell Distribution Width 17.4 % (11.8-14.3)
[2023-07-26 06:40] LABS: Chloride 118 mmol/L (98-107); INR 1.7 (0.9-1.15); Partial Thromboplastin Time 39.6 SEC (24.5-34.5); Potassium 4.6 mmol/L (3.5-5.1); Prothrombin Time 17.3 sec (9.3-11.8)
[2023-07-26 06:41] LABS: Anion Gap 8 (5-15); Calcium 6.7 mg/dL (8.7-10.4); Carbon Dioxide 22 mmol/L (20-30)
[2023-07-26 06:46] LABS: BUN/Creatinine Ratio 7.9 (10.0-20.0); Blood Urea Nitrogen 19 mg/dL (9-23)
[2023-07-26 07:00] LABS: Glucose 133 mg/dL (74-106); Sodium 148 mmol/L (136-145)
[2023-07-26 07:24] LABS: White Blood Cell 78.5 10^3/uL (4.4-10.8)
[2023-07-26 07:25] LABS: Basophils % (manual) 0 (0.0-2.0); Blast Cells 0; Promyelocytes % 0
[2023-07-26 08:18] LABS: Band Neutrophils % (manual) 11; Eosinophils % (manual) 4 (0-7); Lymphocytes % (manual) 12 (10.0-50.0); Metamyelocytes % 4; Monocytes % (manual) 16 (0-12); Myelocytes % 3; Reactive Lymphocytes 4
[2023-07-26 08:19] LABS: Anisocytosis Slight; Platelet Estimate Adequate
[2023-07-26] MEDS: PHENYLEPHRINE INJ 80 MG in SODIUM CHL 0.9% 242 ML IV SCH (12:00)
[2023-07-26] MEDS ORDERED: TPN PER PHARMACY 0 ML IV SCH (12:00)
[2023-07-26] MEDS: NOREPINEPHRINE BITARTRATE 32 MG in SODIUM CHL 0.9% 218 ML IV SCH (13:08)
[2023-07-26] MEDS ORDERED: DEXTROSE (50%) 50ML SYRG IV SCH (14:00)
[2023-07-26 14:10] LABS: Magnesium 1.4 mg/dL (1.6-2.6)
[2023-07-26 15:43] LABS: Hemoglobin 7.8 g/dL (13.5-17.5)
[2023-07-26 15:47] LABS: Hemoglobin 5.4 g/dL (13.5-17.5)
[2023-07-26 15:56] LABS: Base Excess -2.8 mmol/L (-2.0-2.0)
[2023-07-26] MEDS: MAGNESIUM SULFATE 1GM/100ML 100 ML IV SCH (17:05)
[2023-07-26] MEDS: InsuLIN REG 1unit/0.01ml Soln (100units/ml) SC SCH (18:00)
[2023-07-26] MEDS: ACCU-CHEK COMFORT CURVE STRIP VI SCH (18:13)
[2023-07-26] MEDS: AMINO ACID INFUSION IN D5W 1,000 ML IV ONE (20:06)
[2023-07-26 21:53] LABS: Hemoglobin 8.2 g/dL (13.5-17.5)
[2023-07-26 21:56] LABS: Hematocrit 27.5 % (41.0-53.0)
[2023-07-27] VITALS (102 sets, daily range): BP systolic 89–123; BP diastolic 32–54; PULSE 89–188; RESP 8–24; TEMP 98.1–99.6; O2SAT 96–100
[2023-07-27 04:56] LABS: Basophils # (auto) 0.8 10 ^3/uL (0-0.2); Basophils % (auto) 0.7 % (0.0-2.0); Eosinophils # (auto) 2.1 10 ^3/uL (0-0.8); Eosinophils % (auto) 1.8 % (0.0-7.0); Lymphocytes # (auto) 2.7 10 ^3/uL (0.4-5.4); Lymphocytes % (auto) 2.4 % (10.0-50.0); Mean Corpuscular Hemoglobin 25.8 pg (28.0-32.0); Mean Corpuscular Hgb Conc. 29.5 g/dL (32.0-36.0); Mean Corpuscular Volume 87.4 fL (80.0-100.0); Monocytes # (auto) 25.1 10 ^3/uL (0-1.3); Neutrophils % (auto) 72.8 % (37.0-80.0); Nucleated Red Blood Cells % 0.2 %; Red Blood Cells 3.09 10^6/uL (4.5-5.90)
[2023-07-27 04:58] LABS: Monocytes % (auto) 22.3 % (0.0-12.0)
[2023-07-27 04:59] LABS: White Blood Cell 112.8 10^3/uL (4.4-10.8)
[2023-07-27 05:08] LABS: INR 1.81 (0.9-1.15); Prothrombin Time 18.4 sec (9.3-11.8)
[2023-07-27 05:10] LABS: Alkaline Phosphatase 80 U/L (46-116); Anion Gap 6 (5-15); Aspartate Aminotransferase 33 U/L (13-40); BUN/Creatinine Ratio 8.5 (10.0-20.0); Blood Urea Nitrogen 26 mg/dL (9-23); Calcium 7.3 mg/dL (8.5-10.1); Carbon Dioxide 24 mmol/L (20-30); Chloride 115 mmol/L (98-107); Glucose 119 mg/dL (74-106); Potassium 4.7 mmol/L (3.5-5.1); Sodium 145 mmol/L (136-145); Triglycerides 61 mg/dL (< 150)
[2023-07-27 05:11] LABS: Phosphorus 4.7 mg/dL (2.4-5.1)
[2023-07-27 05:12] LABS: Bilirubin, Total 0.5 mg/dL (0.2-1.0); Total Protein 3.5 g/dL (5.7-8.2)
[2023-07-27 05:26] LABS: Alanine Aminotransferase < 9 U/L (7-40)
[2023-07-27 05:55] LABS: Magnesium 1.9 mg/dL (1.6-2.6)
[2023-07-27 07:26] LABS: Base Excess -2.9 mmol/L (-2.0-2.0)
[2023-07-27] MEDS: CEFEPIME 1GM/ 50ML 50 ML IV SCH (10:14)
[2023-07-27] MEDS ORDERED: TPN PER PHARMACY 0 ML IV SCH (14:45)
[2023-07-27] MEDS: FUROSEMIDE INJECTION 100 MG in SODIUM CHL 0.9% 100 ML IV SCH (15:04)
[2023-07-27] MEDS: AMIODARONE 450mg/250ml AE 250 ML IV ONE (15:25)
[2023-07-27] MEDS: AMIODARONE BOLUS KIT 100 ML IV ONE ×2 (15:25→15:32)
[2023-07-27] MEDS: AMIODARONE 450mg/250ml AE 250 ML IV SCH (15:42)
[2023-07-27] MEDS: TPN PER PHARMACY IV NR (20:26)
[2023-07-27] MEDS: PANTOPRAZOLE 40 MG/10 ML VIAL INJ IV SCH (21:48)
[2023-07-27] MEDS: MEROPENEM 500MG IVPB 50 ML IV SCH (21:50)
[2023-07-27] MEDS ORDERED: MEROPENEM 1GM IVPB 50 ML IV SCH (22:00)
[2023-07-28] VITALS (107 sets, daily range): BP systolic 79–136; BP diastolic 30–44; PULSE 61–103; RESP 13–19; TEMP 97.2–98.2; O2SAT 93–100
[2023-07-28 03:59] LABS: Albumin 2.1 g/dL (3.2-4.8); Alkaline Phosphatase 111 U/L (46-116); Anion Gap 5 (5-15); Aspartate Aminotransferase 35 U/L (13-40); BUN/Creatinine Ratio 10.9 (10.0-20.0); Calcium 7.6 mg/dL (8.7-10.4); Carbon Dioxide 25 mmol/L (20-30); Chloride 111 mmol/L (98-107); Magnesium 1.7 mg/dL (1.6-2.6); Potassium 4.8 mmol/L (3.5-5.1); Sodium 141 mmol/L (136-145); Uric Acid 9.7 mg/dL (3.7-9.2)
[2023-07-28 04:00] LABS: Alanine Aminotransferase < 9 U/L (7-40); Bilirubin, Total 0.6 mg/dL (0.2-1.0); Blood Urea Nitrogen 36 mg/dL (9-23); Glucose 252 mg/dL (74-106); Phosphorus 3.8 mg/dL (2.4-5.1); Total Protein 3.7 g/dL (5.7-8.2)
[2023-07-28 04:02] LABS: Hematocrit 28.8 % (41.0-53.0); Hemoglobin 8.3 g/dL (13.5-17.5); Mean Corpuscular Hemoglobin 25.3 pg (28.0-32.0); Mean Corpuscular Hgb Conc. 28.7 g/dL (32.0-36.0); Mean Corpuscular Volume 88.1 fL (80.0-100.0); Red Blood Cells 3.27 10^6/uL (4.5-5.90); Red Cell Distribution Width 18.7 % (11.8-14.3)
[2023-07-28 04:13] LABS: White Blood Cell 138.1 10^3/uL (4.4-10.8)
[2023-07-28 04:16] LABS: Basophils % (manual) 0 (0.0-2.0); Blast Cells 0; Promyelocytes % 0; Reactive Lymphocytes 0
[2023-07-28 04:44] LABS: Band Neutrophils % (manual) 9; Eosinophils % (manual) 3 (0-7); Hypochromia Slight; Lymphocytes % (manual) 2 (10.0-50.0); Metamyelocytes % 1; Monocytes % (manual) 22 (0-12); Myelocytes % 1; Platelet Estimate Markedly Increased; Smudge Cells 6 /100 WBC
[2023-07-28 06:23] LABS: Base Excess -2.4 mmol/L (-2.0-2.0)
[2023-07-28] MEDS: TPN PER PHARMACY IV NR (20:13)
[2023-07-29] VITALS (108 sets, daily range): BP systolic 92–134; BP diastolic 33–54; PULSE 58–81; RESP 16–19; TEMP 97.7–99.1; O2SAT 94–100
[2023-07-29 04:07] LABS: Basophils # (auto) 1.1 10 ^3/uL (0-0.2); Basophils % (auto) 0.7 % (0.0-2.0); Hematocrit 27.8 % (41.0-53.0); Hemoglobin 7.9 g/dL (13.5-17.5); Lymphocytes # (auto) 3.8 10 ^3/uL (0.4-5.4); Lymphocytes % (auto) 2.5 % (10.0-50.0); Mean Corpuscular Hemoglobin 25.1 pg (28.0-32.0); Mean Corpuscular Hgb Conc. 28.4 g/dL (32.0-36.0); Mean Corpuscular Volume 88.4 fL (80.0-100.0); Monocytes # (auto) 24.3 10 ^3/uL (0-1.3); Monocytes % (auto) 15.9 % (0.0-12.0); Neutrophils # (auto) 120.5 10 ^3/uL (1.6-8.6); Neutrophils % (auto) 78.9 % (37.0-80.0); Red Blood Cells 3.15 10^6/uL (4.5-5.90); Red Cell Distribution Width 18.8 % (11.8-14.3)
[2023-07-29 04:11] LABS: White Blood Cell 152.8 10^3/uL (4.4-10.8)
[2023-07-29 04:20] LABS: Alkaline Phosphatase 110 U/L (46-116); Anion Gap 5 (5-15); Aspartate Aminotransferase 33 U/L (13-40); BUN/Creatinine Ratio 11.3 (10.0-20.0); Blood Urea Nitrogen 41 mg/dL (9-23); Calcium 7.5 mg/dL (8.7-10.4); Carbon Dioxide 26 mmol/L (20-30); Chloride 110 mmol/L (98-107); Glucose 172 mg/dL (74-106); Potassium 4.2 mmol/L (3.5-5.1); Sodium 141 mmol/L (136-145)
[2023-07-29 04:21] LABS: Bilirubin, Total 0.5 mg/dL (0.2-1.0); Total Protein 3.7 g/dL (5.7-8.2)
[2023-07-29 04:23] LABS: Alanine Aminotransferase < 9 U/L (7-40)
[2023-07-29 07:06] LABS: Base Excess -4.2 mmol/L (-2.0-2.0)
[2023-07-29 11:47] LABS: Magnesium 1.8 mg/dL (1.6-2.6)
[2023-07-29 11:50] LABS: Phosphorus 2.6 mg/dL (2.4-5.1)
[2023-07-29] MEDS: FUROSEMIDE INJECTION 100 MG in SODIUM CHL 0.9% 100 ML IV SCH (12:30)
[2023-07-29] MEDS: ALBUMIN 25% 100 ML IV ONE (13:26)
[2023-07-29] MEDS: MAGNESIUM SULFATE 1GM/100ML 100 ML IV ONE (15:22)
[2023-07-29] MEDS: TPN*HIGH CONC* PER PHARMACY IV NR (19:54)
[2023-07-30] VITALS (108 sets, daily range): BP systolic 79–132; BP diastolic 29–45; PULSE 60–88; RESP 16–22; TEMP 97–98.4; O2SAT 97–100
[2023-07-30 04:03] LABS: Hematocrit 27.6 % (41.0-53.0); Hemoglobin 7.9 g/dL (13.5-17.5); Mean Corpuscular Hemoglobin 25.2 pg (28.0-32.0); Mean Corpuscular Hgb Conc. 28.6 g/dL (32.0-36.0); Red Blood Cells 3.14 10^6/uL (4.5-5.90)
[2023-07-30 04:18] LABS: Red Cell Distribution Width 20.3 % (11.8-14.3)
[2023-07-30 04:20] LABS: Basophils % (manual) 0 (0.0-2.0); Metamyelocytes % 0; Promyelocytes % 0; Reactive Lymphocytes 0; White Blood Cell 166.8 10^3/uL (4.4-10.8)
[2023-07-30 04:50] LABS: Albumin 2.3 g/dL (3.2-4.8); Alkaline Phosphatase 129 U/L (46-116); Anion Gap 6 (5-15); Aspartate Aminotransferase 38 U/L (13-40); BUN/Creatinine Ratio 10.7 (10.0-20.0); Blood Urea Nitrogen 41 mg/dL (9-23); Calcium 7.7 mg/dL (8.5-10.1); Carbon Dioxide 27 mmol/L (20-30); Chloride 108 mmol/L (98-107); Glucose 229 mg/dL (74-106); Potassium 3.9 mmol/L (3.5-5.1); Sodium 141 mmol/L (136-145)
[2023-07-30 04:51] LABS: Bilirubin, Total 0.5 mg/dL (0.2-1.0); Phosphorus 2.2 mg/dL (2.4-5.1); Total Protein 4.1 g/dL (5.7-8.2)
[2023-07-30 04:52] LABS: Alanine Aminotransferase < 9 U/L (7-40)
[2023-07-30 05:05] LABS: Band Neutrophils % (manual) 24; Blast Cells 1; Eosinophils % (manual) 2 (0-7); Lymphocytes % (manual) 4 (10.0-50.0); Monocytes % (manual) 19 (0-12); Myelocytes % 3; Smudge Cells 2 /100 WBC
[2023-07-30 05:06] LABS: Giant Platelets Few; Hypochromia Slight; Platelet Estimate Markedly Increased
[2023-07-30 05:07] LABS: Target Cell FEW
[2023-07-30 05:20] LABS: Magnesium 2.2 mg/dL (1.6-2.6)
[2023-07-30] MEDS ORDERED: FUROSEMIDE INJECTION 100 MG in SODIUM CHL 0.9% 100 ML IV SCH (09:45)
[2023-07-30] MEDS: FUROSEMIDE INJECTION 100 MG in SODIUM CHL 0.9% 100 ML IV SCH (10:15)
[2023-07-30] MEDS: ALBUMIN 25% 100 ML IV SCH (10:44)
[2023-07-30] MEDS: POTASSIUM PHOSPHATE 22 MEQ in SODIUM CHL 0.9% 100 ML IV ONE (12:21)
[2023-07-30 14:20] LABS: Base Excess 1.8 mmol/L (-2.0-2.0)
[2023-07-30 15:17] LABS: Potassium 4.4 mmol/L (3.5-5.1)
[2023-07-30] MEDS: TPN*HIGH CONC* PER PHARMACY IV NR (20:24)
[2023-07-31] VITALS (107 sets, daily range): BP systolic 87–138; BP diastolic 31–67; PULSE 58–89; RESP 12–26; TEMP 97.7–98.1; O2SAT 80–100
[2023-07-31 04:00] LABS: Hematocrit 26.6 % (41.0-53.0); Hemoglobin 7.5 g/dL (13.5-17.5); Mean Corpuscular Hemoglobin 24.6 pg (28.0-32.0); Mean Corpuscular Hgb Conc. 28.2 g/dL (32.0-36.0); Mean Corpuscular Volume 87.3 fL (80.0-100.0); Red Blood Cells 3.05 10^6/uL (4.5-5.90)
[2023-07-31 04:15] LABS: Albumin 2.7 g/dL (3.2-4.8); Alkaline Phosphatase 130 U/L (46-116); Anion Gap 8 (5-15); Aspartate Aminotransferase 34 U/L (13-40); BUN/Creatinine Ratio 12.2 (10.0-20.0); Blood Urea Nitrogen 44 mg/dL (9-23); Calcium 8.1 mg/dL (8.5-10.1); Carbon Dioxide 29 mmol/L (20-30); Chloride 106 mmol/L (98-107); Glucose 168 mg/dL (74-106); Potassium 3.3 mmol/L (3.5-5.1); Sodium 143 mmol/L (136-145)
[2023-07-31 04:16] LABS: Bilirubin, Total 0.5 mg/dL (0.2-1.0); Phosphorus 2.4 mg/dL (2.4-5.1); Total Protein 4.6 g/dL (5.7-8.2)
[2023-07-31 04:17] LABS: Alanine Aminotransferase < 9 U/L (7-40)
[2023-07-31 04:25] LABS: Red Cell Distribution Width 20.1 % (11.8-14.3)
[2023-07-31 04:30] LABS: Basophils % (manual) 0 (0.0-2.0); Reactive Lymphocytes 0
[2023-07-31 04:52] LABS: Band Neutrophils % (manual) 15; Blast Cells 1; Eosinophils % (manual) 4 (0-7); Lymphocytes % (manual) 8 (10.0-50.0); Metamyelocytes % 5; Monocytes % (manual) 10 (0-12); Myelocytes % 1; Platelet Estimate Markedly Increased; Promyelocytes % 3
[2023-07-31 04:53] LABS: Giant Platelets Few; Hypochromia Slight
[2023-07-31] MEDS: POTASSIUM CHL 20MEQ/100ML 100 ML IV SCH (05:18)
[2023-07-31] MEDS: FUROSEMIDE INJECTION 100 MG in SODIUM CHL 0.9% 100 ML IV SCH (10:21)
[2023-07-31] MEDS: SODIUM PHOSP 20MEQ(15MMOL) IN NS 100 ML IV ONE (10:24)
[2023-07-31 12:09] LABS: Potassium 6.1 mmol/L (3.5-5.1)
[2023-07-31] MEDS: ALBUTEROL SULF 2.5 MG/0.5ML(0.5%) NEB SOLN NEB ONE (14:36)
[2023-07-31] MEDS: DEXTROSE (50%) 50ML SYRG IV ONE (15:50)
[2023-07-31] MEDS: SODIUM BICARB 8.4% 50Meq/50ml SYR Vial IV ONE (15:51)
[2023-07-31] MEDS: InsuLIN REG 1unit/0.01ml Soln (100units/ml) IV ONE (16:01)
[2023-07-31] MEDS: TPN*HIGH CONC* PER PHARMACY IV NR (20:09)
[2023-08-01] VITALS (106 sets, daily range): BP systolic 97–132; BP diastolic 33–53; PULSE 64–144; RESP 13–21; TEMP 97.7–99.1; O2SAT 42–100
[2023-08-01] MEDS: DIGOXIN (250MCG/ML) 2 ML AMPULE IV ONE (00:30)
[2023-08-01 06:26] LABS: Hemoglobin 8.2 g/dL (13.5-17.5); Mean Corpuscular Hemoglobin 24.9 pg (28.0-32.0)
[2023-08-01 06:33] LABS: Mean Corpuscular Hgb Conc. 28.4 g/dL (32.0-36.0); Mean Corpuscular Volume 87.7 fL (80.0-100.0); Red Blood Cells 3.31 10^6/uL (4.5-5.90)
[2023-08-01 06:37] LABS: Red Cell Distribution Width 20.7 % (11.8-14.3)
[2023-08-01 06:38] LABS: White Blood Cell 191.2 10^3/uL (4.4-10.8)
[2023-08-01 06:39] LABS: Basophils % (manual) 0 (0.0-2.0); Myelocytes % 0; Reactive Lymphocytes 0
[2023-08-01 06:50] LABS: Band Neutrophils % (manual) 13; Blast Cells 3; Eosinophils % (manual) 4 (0-7); Lymphocytes % (manual) 7 (10.0-50.0); Metamyelocytes % 2; Monocytes % (manual) 22 (0-12); Platelet Estimate Markedly Increased; Promyelocytes % 1
[2023-08-01 06:51] LABS: Giant Platelets Moderate; Hypochromia Moderate; Polychromasia Slight
[2023-08-01 06:59] LABS: Alkaline Phosphatase 166 U/L (46-116); Anion Gap 9 (5-15); Aspartate Aminotransferase 35 U/L (13-40); BUN/Creatinine Ratio 13.9 (10.0-20.0); Blood Urea Nitrogen 46 mg/dL (9-23); Calcium 8.4 mg/dL (8.5-10.1); Carbon Dioxide 32 mmol/L (20-30); Chloride 105 mmol/L (98-107); Potassium 3.6 mmol/L (3.5-5.1); Sodium 146 mmol/L (136-145)
[2023-08-01 07:00] LABS: Bilirubin, Total 0.5 mg/dL (0.2-1.0); Phosphorus 3.5 mg/dL (2.4-5.1)
[2023-08-01 07:03] LABS: Alanine Aminotransferase < 9 U/L (7-40); Glucose 57 mg/dL (74-106)
[2023-08-01 07:25] LABS: Base Excess 4.4 mmol/L (-2.0-2.0)
[2023-08-01 07:41] LABS: Albumin 2.8 g/dL (3.2-4.8)
[2023-08-01] MEDS: POTASSIUM CHL 20MEQ/100ML 100 ML IV SCH (11:54)
[2023-08-01] MEDS: [UNRECOGNIZED DRUG - OTHER] SC ONE (12:45)
[2023-08-01 12:49] LABS: Magnesium 2.2 mg/dL (1.6-2.6)
[2023-08-01 13:14] LABS: Magnesium 2.2 mg/dL (1.6-2.6)
[2023-08-01 13:21] LABS: Magnesium 2.2 mg/dL (1.6-2.6)
[2023-08-01 13:31] LABS: Magnesium 2.4 mg/dL (1.6-2.6)
[2023-08-01] MEDS: FUROSEMIDE INJECTION 100 MG in SODIUM CHL 0.9% 100 ML IV SCH (14:27)
[2023-08-01] MEDS: DOPamine 1600MCG/ML D5W 250 ML IV SCH (14:59)
[2023-08-01] MEDS: ALLOPURINOL 100 MG TAB PO ONE (14:59)
[2023-08-01] MEDS: hydroxyUREA 500 MG CAP PO ONE (15:46)
[2023-08-01] MEDS: ENOXAPARIN SOD 30 MG/0.3 ML SYRINGE SC SCH (19:18)
[2023-08-01] MEDS: TPN*HIGH CONC* PER PHARMACY IV NR (20:44)
[2023-08-01] MEDS: ETOMIDATE (2MG/ML) 20ML VIAL IV ONE (20:48)
[2023-08-01] MEDS: ENOXAPARIN SOD 30 MG/0.3 ML SYRINGE SC ONE (20:48)
[2023-08-01] MEDS: SUCCINYLCHOLINE CHLORIDE 20 MG/ML 10ML VIAL IV ONE (20:48)
[2023-08-01] MEDS: ROCURONIUM 10MG/ML 10ML VIAL IV ONE (20:49)
[2023-08-01] MEDS: hydroxyUREA 500 MG CAP PO SCH (20:58)
[2023-08-02] VITALS (104 sets, daily range): BP systolic 86–146; BP diastolic 31–63; PULSE 77–137; RESP 13–38; TEMP 98.3–100.4; O2SAT 93–100
[2023-08-02 03:59] LABS: Hematocrit 30.2 % (41.0-53.0); Hemoglobin 8.2 g/dL (13.5-17.5); Mean Corpuscular Hgb Conc. 27.3 g/dL (32.0-36.0); Red Blood Cells 3.43 10^6/uL (4.5-5.90)
[2023-08-02 04:09] LABS: Red Cell Distribution Width 20.7 % (11.8-14.3)
[2023-08-02 04:11] LABS: White Blood Cell 179.5 10^3/uL (4.4-10.8)
[2023-08-02 04:12] LABS: Albumin 2.8 g/dL (3.2-4.8); Alkaline Phosphatase 170 U/L (46-116); Anion Gap 8 (5-15); Aspartate Aminotransferase 40 U/L (13-40); Band Neutrophils % (manual) 0; Basophils % (manual) 0 (0.0-2.0); Blood Urea Nitrogen 49 mg/dL (9-23); Calcium 8.1 mg/dL (8.5-10.1); Carbon Dioxide 30 mmol/L (20-30); Chloride 105 mmol/L (98-107); Reactive Lymphocytes 0; Sodium 143 mmol/L (136-145)
[2023-08-02 04:13] LABS: Bilirubin, Total 0.4 mg/dL (0.2-1.0); Phosphorus 4.4 mg/dL (2.4-5.1); Total Protein 5.2 g/dL (5.7-8.2)
[2023-08-02 04:14] LABS: Alanine Aminotransferase 9 U/L (7-40); Glucose 164 mg/dL (74-106)
[2023-08-02 05:04] LABS: Blast Cells 3; Eosinophils % (manual) 1 (0-7); Lymphocytes % (manual) 2 (10.0-50.0); Metamyelocytes % 2; Monocytes % (manual) 19 (0-12); Myelocytes % 4; Platelet Estimate Markedly Increased; Promyelocytes % 1
[2023-08-02] MEDS: FUROSEMIDE INJECTION 100 MG in SODIUM CHL 0.9% 100 ML IV SCH (05:12)
[2023-08-02 07:26] LABS: Uric Acid 10.9 mg/dL (3.7-9.2)
[2023-08-02 07:27] LABS: Magnesium 2.3 mg/dL (1.6-2.6)
[2023-08-02 07:43] LABS: Base Excess 4.9 mmol/L (-2.0-2.0)
[2023-08-02] MEDS: ALLOPURINOL 100 MG TAB PO SCH (09:23)
[2023-08-02 12:20] LABS: Base Excess 4.6 mmol/L (-2.0-2.0)
[2023-08-02] MEDS: FUROSEMIDE 40 MG/4 ML VIAL IV SCH (17:24)
[2023-08-02] MEDS: TPN*HIGH CONC* PER PHARMACY IV NR (19:58)
[2023-08-02] MEDS: ACETAMINOPHEN 650 MG RECT SUPP PR PRN (20:24)
[2023-08-02 21:39] LABS: Hematocrit 28.1 % (41.0-53.0); Hemoglobin 7.8 g/dL (13.5-17.5)
[2023-08-02] MEDS: PANTOPRAZOLE 40 MG/10 ML VIAL INJ IV SCH (22:00)
[2023-08-02 22:15] LABS: INR 1.42 (0.9-1.15); Prothrombin Time 14.7 sec (9.3-11.8)
[2023-08-03] VITALS (96 sets, daily range): BP systolic 97–136; BP diastolic 36–57; PULSE 71–93; RESP 11–39; TEMP 97.3–98.4; O2SAT 96–100
[2023-08-03 01:50] LABS: Hematocrit 26.3 % (41.0-53.0); Hemoglobin 7.6 g/dL (13.5-17.5)
[2023-08-03 04:17] LABS: Hematocrit 26.8 % (41.0-53.0); Hemoglobin 7.7 g/dL (13.5-17.5); Mean Corpuscular Hemoglobin 24.8 pg (28.0-32.0); Mean Corpuscular Hgb Conc. 28.6 g/dL (32.0-36.0); Mean Corpuscular Volume 86.7 fL (80.0-100.0); Red Blood Cells 3.09 10^6/uL (4.5-5.90)
[2023-08-03 04:21] LABS: Red Cell Distribution Width 20.1 % (11.8-14.3)
[2023-08-03 04:25] LABS: Basophils % (manual) 0 (0.0-2.0); Eosinophils % (manual) 0 (0-7); Lymphocytes % (manual) 0 (10.0-50.0); Metamyelocytes % 0; Reactive Lymphocytes 0
[2023-08-03 05:21] LABS: Band Neutrophils % (manual) 3; Blast Cells 3; Monocytes % (manual) 15 (0-12); Myelocytes % 6; Platelet Estimate Markedly Increased; Promyelocytes % 1
[2023-08-03 05:27] LABS: Alanine Aminotransferase 27 U/L (7-40); Albumin 2.5 g/dL (3.2-4.8); Alkaline Phosphatase 160 U/L (46-116); Aspartate Aminotransferase 80 U/L (13-40); BUN/Creatinine Ratio 18.9 (10.0-20.0); Blood Urea Nitrogen 56 mg/dL (9-23); Carbon Dioxide 30 mmol/L (20-30); Glucose 147 mg/dL (74-106); Magnesium 2.3 mg/dL (1.6-2.6)
[2023-08-03 05:28] LABS: Bilirubin, Total 0.4 mg/dL (0.2-1.0); Phosphorus 3.9 mg/dL (2.4-5.1); Total Protein 4.9 g/dL (5.7-8.2)
[2023-08-03 05:29] LABS: Calcium 8.2 mg/dL (8.5-10.1)
[2023-08-03] MEDS: NOREPINEPHRINE BITARTRATE 32 MG in SODIUM CHL 0.9% 218 ML IV SCH (06:00)
[2023-08-03 06:49] LABS: Anion Gap 9 (5-15); Chloride 107 mmol/L (98-107); Potassium 3.4 mmol/L (3.5-5.1); Sodium 146 mmol/L (136-145)
[2023-08-03] MEDS: PANTOPRAZOLE 40mg/50ML NS AE 50 ML IV SCH (08:08)
[2023-08-03] MEDS: POTASSIUM CHL 20MEQ/100ML 100 ML IV ONE (10:14)
[2023-08-03 13:07] LABS: Uric Acid 10.3 mg/dL (3.7-9.2)
[2023-08-03] MEDS: FUROSEMIDE 40 MG/4 ML VIAL IV SCH (14:45)
[2023-08-03] MEDS: SOD CHL 0.45% 1,000 ML IV SCH (14:48)
[2023-08-03] MEDS: TPN*HIGH CONC* PER PHARMACY IV NR (19:25)
[2023-08-04] VITALS (86 sets, daily range): BP systolic 89–128; BP diastolic 34–66; PULSE 69–88; RESP 8–43; TEMP 97.7–98.5; O2SAT 89–100
[2023-08-04 03:58] LABS: Hematocrit 26.8 % (41.0-53.0); Hemoglobin 7.7 g/dL (13.5-17.5); Mean Corpuscular Hemoglobin 24.9 pg (28.0-32.0); Mean Corpuscular Hgb Conc. 28.7 g/dL (32.0-36.0); Mean Corpuscular Volume 86.7 fL (80.0-100.0); Red Blood Cells 3.09 10^6/uL (4.5-5.90); Red Cell Distribution Width 19.1 % (11.8-14.3)
[2023-08-04 04:07] LABS: Band Neutrophils % (manual) 0; Basophils % (manual) 0 (0.0-2.0); Eosinophils % (manual) 0 (0-7); Metamyelocytes % 0; Promyelocytes % 0; Reactive Lymphocytes 0
[2023-08-04 04:14] LABS: Alanine Aminotransferase 18 U/L (7-40); Albumin 2.4 g/dL (3.2-4.8); Alkaline Phosphatase 128 U/L (46-116); Anion Gap 9 (5-15); Aspartate Aminotransferase 34 U/L (13-40); BUN/Creatinine Ratio 22.8 (10.0-20.0); Bilirubin, Total 0.5 mg/dL (0.2-1.0); Blood Urea Nitrogen 55 mg/dL (9-23); Carbon Dioxide 29 mmol/L (20-30); Chloride 110 mmol/L (98-107); Glucose 166 mg/dL (74-106); Potassium 3.1 mmol/L (3.5-5.1); Sodium 148 mmol/L (136-145); Total Protein 4.6 g/dL (5.7-8.2); Uric Acid 9.1 mg/dL (3.7-9.2)
[2023-08-04 05:00] LABS: Triglycerides 110 mg/dL (< 150)
[2023-08-04 05:01] LABS: Blast Cells 1; Lymphocytes % (manual) 2 (10.0-50.0); Magnesium 2.3 mg/dL (1.6-2.6); Monocytes % (manual) 12 (0-12); Myelocytes % 6
[2023-08-04 05:02] LABS: Platelet Estimate Markedly Increased
[2023-08-04] MEDS: POTASSIUM CHL 20MEQ/100ML 100 ML IV ONE ×2 (09:20→12:58)
[2023-08-04] MEDS ORDERED: POTASSIUM CHL 20MEQ/100ML 100 ML IV ONE (10:15)
[2023-08-04] MEDS: D5W 5% 1,000 ML IV SCH (12:58)
[2023-08-04] MEDS: TPN*HIGH CONC* PER PHARMACY IV NR (20:52)
[2023-08-05] VITALS (36 sets, daily range): BP systolic 111–147; BP diastolic 32–68; PULSE 64–85; RESP 18–33; TEMP 97.8–98.5; O2SAT 95–100
[2023-08-05 04:25] LABS: Hematocrit 28.7 % (41.0-53.0); Hemoglobin 8.4 g/dL (13.5-17.5); Mean Corpuscular Hemoglobin 25.4 pg (28.0-32.0); Mean Corpuscular Hgb Conc. 29.4 g/dL (32.0-36.0); Mean Corpuscular Volume 86.5 fL (80.0-100.0); Red Blood Cells 3.32 10^6/uL (4.5-5.90); Red Cell Distribution Width 18.9 % (11.8-14.3)
[2023-08-05 04:42] LABS: Alanine Aminotransferase 18 U/L (7-40); Albumin 2.5 g/dL (3.2-4.8); Alkaline Phosphatase 121 U/L (46-116); Carbon Dioxide 29 mmol/L (20-30); Chloride 110 mmol/L (98-107); Glucose 161 mg/dL (74-106)
[2023-08-05 04:43] LABS: Anion Gap 9 (5-15); Aspartate Aminotransferase 29 U/L (13-40); BUN/Creatinine Ratio 25.1 (10.0-20.0); Bilirubin, Total 0.5 mg/dL (0.2-1.0); Blood Urea Nitrogen 49 mg/dL (9-23); Magnesium 2.2 mg/dL (1.6-2.6); Sodium 148 mmol/L (136-145); Total Protein 4.9 g/dL (5.7-8.2)
[2023-08-05 04:57] LABS: Band Neutrophils % (manual) 0; Blast Cells 0; Metamyelocytes % 0; Myelocytes % 0; Promyelocytes % 0; Reactive Lymphocytes 0
[2023-08-05 05:55] LABS: Basophils % (manual) 3 (0.0-2.0); Eosinophils % (manual) 2 (0-7); Lymphocytes % (manual) 4 (10.0-50.0); Monocytes % (manual) 5 (0-12)
[2023-08-05 05:56] LABS: Platelet Estimate Markedly Increased
[2023-08-05] MEDS: POTASSIUM CHL 20MEQ/100ML 100 ML IV SCH (10:18)
[2023-08-05] MEDS: TPN*HIGH CONC* PER PHARMACY IV NR (20:21)
[2023-08-05] MEDS: PANTOPRAZOLE 40 MG/10 ML VIAL INJ IV SCH (22:20)
[2023-08-06] VITALS (14 sets, daily range): BP systolic 119–152; BP diastolic 49–65; PULSE 72–90; RESP 13–33; TEMP 97.5–98.6; O2SAT 96–100
[2023-08-06 04:23] LABS: Alanine Aminotransferase 26 U/L (7-40); Albumin 2.4 g/dL (3.2-4.8); Alkaline Phosphatase 111 U/L (46-116); Anion Gap 8 (5-15); Aspartate Aminotransferase 39 U/L (13-40); BUN/Creatinine Ratio 27.8 (10.0-20.0); Blood Urea Nitrogen 44 mg/dL (9-23); Calcium 7.5 mg/dL (8.7-10.4); Carbon Dioxide 27 mmol/L (20-30); Chloride 110 mmol/L (98-107); Glucose 213 mg/dL (74-106); Magnesium 2.1 mg/dL (1.6-2.6); Potassium 3.5 mmol/L (3.5-5.1); Sodium 145 mmol/L (136-145)
[2023-08-06 04:24] LABS: Bilirubin, Total 0.7 mg/dL (0.2-1.0); Phosphorus 3.8 mg/dL (2.4-5.1); Total Protein 4.9 g/dL (5.7-8.2)
[2023-08-06 11:29] LABS: Hematocrit 30.6 % (41.0-53.0); Mean Corpuscular Hemoglobin 25.5 pg (28.0-32.0); Mean Corpuscular Hgb Conc. 29.5 g/dL (32.0-36.0); Mean Corpuscular Volume 86.6 fL (80.0-100.0); Red Blood Cells 3.54 10^6/uL (4.5-5.90)
[2023-08-06 11:38] LABS: Basophils % (manual) 0 (0.0-2.0); Blast Cells 0; Metamyelocytes % 0; Myelocytes % 0; Promyelocytes % 0
[2023-08-06 12:06] LABS: Band Neutrophils % (manual) 7; Eosinophils % (manual) 2 (0-7); Lymphocytes % (manual) 4 (10.0-50.0); Monocytes % (manual) 11 (0-12); Platelet Estimate Markedly Increased; Reactive Lymphocytes 1
[2023-08-06] MEDS: POTASSIUM CHL 20MEQ/100ML 100 ML IV ONE (13:15)
[2023-08-06] MEDS ORDERED: TPN*HIGH CONC* PER PHARMACY IV NR (20:00)
== END 2023-08-06 17:26 | disposition short-term general hospital (02) | DRG 326 ==
LOC: EDBD 22:52 → ER 22:52 → TELE 07-19 02:48 → DOU IN ICU 07-20 15:35 → ICU CENTRL 07-20 15:36 → TELE-E-ADS 07-21 13:41 → TELE-CENTR 07-21 17:48 → DOU IN ICU 07-22 13:26 → ICU CENTRL 07-24 05:44 → ICU WEST 07-26 10:06
PROVIDERS: ADMIT Nurse Practitioner Acute Care; ATTEND Nurse Practitioner Acute Care
PROC: 30233R1 Transfusion of Nonautologous Platelets into Peripheral Vein, Percutaneous Approach (ICD-10-PCS; principal; 2023-07-19)
PROC: 02HV33Z Insertion of Infusion Device into Superior Vena Cava, Percutaneous Approach (ICD-10-PCS; 2023-07-19)
PROC: B548ZZA Ultrasonography of Superior Vena Cava, Guidance (ICD-10-PCS; 2023-07-19)
PROC: 0DB98ZX Excision of Duodenum, Via Natural or Artificial Opening Endoscopic, Diagnostic (ICD-10-PCS; 2023-07-20)
PROC: 0DB68ZX Excision of Stomach, Via Natural or Artificial Opening Endoscopic, Diagnostic (ICD-10-PCS; 2023-07-20)
PROC: 30233K1 Transfusion of Nonautologous Frozen Plasma into Peripheral Vein, Percutaneous Approach (ICD-10-PCS; 2023-07-21)
PROC: 30233N1 Transfusion of Nonautologous Red Blood Cells into Peripheral Vein, Percutaneous Approach (ICD-10-PCS; 2023-07-22)
PROC: 0W3P8ZZ Control Bleeding in Gastrointestinal Tract, Via Natural or Artificial Opening Endoscopic (ICD-10-PCS; 2023-07-24)
PROC: 3E0G8GC Introduction of Other Therapeutic Substance into Upper GI, Via Natural or Artificial Opening Endoscopic (ICD-10-PCS; 2023-07-24)
PROC: 0DJD8ZZ Inspection of Lower Intestinal Tract, Via Natural or Artificial Opening Endoscopic (ICD-10-PCS; 2023-07-24)
PROC: 0DB60ZZ Excision of Stomach, Open Approach (ICD-10-PCS; 2023-07-25)
PROC: 30233M1 Transfusion of Nonautologous Plasma Cryoprecipitate into Peripheral Vein, Percutaneous Approach (ICD-10-PCS; 2023-07-25)
PROC: 0BH17EZ Insertion of Endotracheal Airway into Trachea, Via Natural or Artificial Opening (ICD-10-PCS; 2023-07-25)
PROC: 5A1955Z Respiratory Ventilation, Greater than 96 Consecutive Hours (ICD-10-PCS; 2023-07-25)
PROC: B41B1ZZ Fluoroscopy of Other Intra-Abdominal Arteries using Low Osmolar Contrast (ICD-10-PCS; 2023-07-25)
PROC: B4131ZZ Fluoroscopy of Splenic Arteries using Low Osmolar Contrast (ICD-10-PCS; 2023-07-25)
PROC: B41F1ZZ Fluoroscopy of Right Lower Extremity Arteries using Low Osmolar Contrast (ICD-10-PCS; 2023-07-25)
DX: K25.6 Chronic or unspecified gastric ulcer with both hemorrhage and perforation (principal); G93.41 Metabolic encephalopathy; N17.0 Acute kidney failure with tubular necrosis; J96.01 Acute respiratory failure with hypoxia; I50.33 Acute on chronic diastolic (congestive) heart failure; D68.9 Coagulation defect, unspecified; I13.0 Hypertensive heart and chronic kidney disease with heart failure and stage 1 through stage 4 chronic kidney disease, or unspecified chronic kidney disease; D61.818 Other pancytopenia; C95.90 Leukemia, unspecified not having achieved remission; Z99.11 Dependence on respirator [ventilator] status; E03.9 Hypothyroidism, unspecified; K57.30 Diverticulosis of large intestine without perforation or abscess without bleeding; K29.80 Duodenitis without bleeding; E86.1 Hypovolemia; E87.5 Hyperkalemia; I25.10 Atherosclerotic heart disease of native coronary artery without angina pectoris; K64.8 Other hemorrhoids; N40.0 Benign prostatic hyperplasia without lower urinary tract symptoms; D75.1 Secondary polycythemia; E87.6 Hypokalemia; N18.32 Chronic kidney disease, stage 3b; E11.22 Type 2 diabetes mellitus with diabetic chronic kidney disease; I48.91 Unspecified atrial fibrillation; Z95.5 Presence of coronary angioplasty implant and graft
CPT/HCPCS: 36415; 36430; 36569; 36600; 71045; 74018; 74176; 75625; 75710; 76775; 76937; 80048; 80053; 81001; 82248; 82270; 82570; 82607; 82728; 82805; 82962; 83010; 83036; 83540; 83550; 83605; 83615; 83735; 83880; 84100; 84132; 84156; 84300; 84443; 84478; 84550; 85007; 85014; 85018; 85025; 85027; 85045; 85060; 85610; 85730; 86850; 86900; 86901; 86920; 87040; 87070; 87081; 87086; 87205; 93005; 93306; 94002; 94003; 94640; 96361; 96365; 97163; 99152; 99291; C1894; C9113; G0378; J0330; J1756; J1815; J2001; J2185; J2250; J2405; J2543; J2704; J3430; J3480; J7042; P9047; Q9967